=== PATIENT | female | born 1960 | race Caucasian/White ===

== ENCOUNTER → 2018-12-16 | Outpatient (CLI) | payer OTHER ==
[~2018-12-16] MED LIST: ACEBUTCAFT PO; ACET325 PO; ASPI325 PO; ASPI81CH PO; ASPI81EC; ASPI81EC PO; ATOR20 PO; Aspir-Trin325 MG PO; B-12 INJECTIONS; BACL10 PO; Bactrim Ds Tab1 EACH PO; CHOL10002 PO; CLOP75 PO; CYCL10 PO; DOCU100 PO; DULO60 PO; ERGO50000 PO; ESCI10; FENT25TP TOP; FISH1000 PO; GABA300 PO; INS70/30I SUBQ; INSN100I SUBQ; INSR10I SUBQ; INSULANPEN SC; LAVAP17G PO; LEVE500 PO; LEVETIRACETAM; LEVSOD25 PO; LEVSOD50 PO; LEVSOD75; LISHYD1012; LORA1 PO; LORA10ER PO; MAGOXI400 PO; METF850; METO50; MULVITB PO; MULVITB&C PO; NAPR500 PO; NAPR550 PO; NEBI5 PO; NYST100P; OXYACE5T PO; OXYC5 PO; PANT40 PO; PIOG15; PRAV20 PO; PRED20 PO; PROACE100 PO; RANI150 PO; RXLORA1 PO; RXNAPNA550 PO; RXOXYACE PO; SULFAMETHOXAZOLE; SULFAMETHOXAZOLE-TRI; SULTRIEL PO; SULTRISS PO; Synthroid25 MCG PO; TRAM50 PO; TRIMETHOPRIM; VENL75ER; VITAMIN B COMPLEX; [UNRECOGNIZED DRUG - CODE]; [UNRECOGNIZED DRUG - OTHER]; [UNRECOGNIZED DRUG - OTHER]; [UNRECOGNIZED DRUG - OTHER]; [UNRECOGNIZED DRUG - OTHER]
[2018-12-18 15:08] LABS: HPV 16 Negative (Negative); HPV 18 Negative (Negative); HPV OTHER HR TYPES Negative (Negative)
== END | disposition home or self-care (01) ==
LOC: LAB SHORT 17:38 → LAB 17:38
PROVIDERS: Nurse Practitioner Family
DX: Z01.419 Encounter for gynecological examination (general) (routine) without abnormal findings (principal)
CPT/HCPCS: 87624; G0123

== ENCOUNTER → 2019-04-27 | Outpatient (CLI) | payer OTHER | END | disposition home or self-care (01) | LOC: LAB SHORT 18:19 → LAB 18:19 | DX: N39.0 Urinary tract infection, site not specified (principal) | CPT/HCPCS: 87077; 87086; 87186 ==

== ENCOUNTER → 2019-07-05 | Outpatient (CLI) | payer OTHER ==
[~2019-07-05] MED LIST changes: +ATOR40TA; +Ativan1 MG PO; +BACLOFEN5 MG PO
[2019-07-05 18:01] LABS: Source, Urine Peds U Bag
[2019-07-05 18:53] LABS: Bilirubin, Urine Neg (Neg); Blood, Urine Neg (Neg); Glucose Qualitative, Urine Neg (Neg); Ketones, Urine Neg (Neg); Leukocyte Esterase, Urine 1+ (Neg); Nitrite, Urine Neg (Neg); Protein, Urine Neg (Neg); Specific Gravity, Urine 1.005 (1.003-1.022); Urobilinogen, Urine NORM (Normal)
[2019-07-05 19:08] LABS: Appearance, Urine Clear (Clear); Color, Urine Yellow (P-Yellow)
[2019-07-05 19:09] LABS: Bacteria Few /hpf; Red Blood Cells, Urine 0-2 /hpf (0-2); Squamous Epithelial Cells Few /hpf (Few); White Blood Cells, Urine 0-2 /hpf (0-5)
== END | disposition home or self-care (01) ==
LOC: LAB SHORT 17:59 → LAB 17:59
PROVIDERS: Nurse Practitioner Primary Care
DX: N39.0 Urinary tract infection, site not specified (principal)
CPT/HCPCS: 81001; 87086

== ENCOUNTER 2019-08-31 07:26 | Emergency (ER) | payer OTHER ==
[~2019-08-31] VITALS: Ht 170.2 cm; Wt 90.7 kg
[~2019-08-31 07:26] MED LIST changes: -ATOR40TA; -Ativan1 MG PO; -BACLOFEN5 MG PO
[2019-08-31 07:54] LABS: Source, Urine Clean Catch
[2019-08-31 08:02] LABS: Bilirubin, Urine Neg (Neg); Blood, Urine Neg (Neg); Glucose Qualitative, Urine Neg (Neg); Ketones, Urine Neg (Neg); Leukocyte Esterase, Urine 2+ (Neg); Nitrite, Urine Neg (Neg); Protein, Urine Neg (Neg); Urobilinogen, Urine NORM (Normal)
[2019-08-31 08:07] LABS: Appearance, Urine Clear (Clear); Color, Urine Yellow (P-Yellow)
[2019-08-31 08:09] LABS: Bacteria Few /hpf; Red Blood Cells, Urine 0-2 /hpf (0-2); Squamous Epithelial Cells Few /hpf (Few); Transitional Epithelial Cells Few /hpf (0-Rare)
[2019-08-31] MEDS ORDERED: ATOR40TA (08:11)
[2019-08-31 08:21] LABS: BASOPHILS ABSOLUTE AUTO 0.01 K/mm3 (0.00-0.23); BASOPHILS PERCENT AUTO 0 % (0-2); EOSINOPHILS ABSOLUTE AUTO 0.06 K/mm3 (0.00-0.68); EOSINOPHILS PERCENT AUTO 2 % (0-6); Hematocrit 41.9 % (33.0-51.0); Hemoglobin 12.6 g/dL (11.5-16.0); IMMATURE GRAN ABSOLUTE AUTO 0.01 K/mm3 (0.00-0.10); IMMATURE GRAN PERCENT AUTO 0 % (0-1); LYMPHOCYTES ABSOLUTE AUTO 1.06 K/mm3 (0.84-5.20); LYMPHOCYTES PERCENT AUTO 37 % (21-46); MONOCYTES ABSOLUTE AUTO 0.23 K/mm3 (0.16-1.47); MONOCYTES PERCENT AUTO 8 % (4-13); Mean Corpuscular HGB 26.5 pg (26.0-34.0); Mean Corpuscular HGB Conc 30.1 g/dL (31.5-36.5); Mean Corpuscular Volume 88 fL (80-100); Mean Platelet Volume 10.3 fL (9.1-12.4); NEUTROPHILS ABSOLUTE AUTO 1.48 K/mm3 (1.96-9.15); NEUTROPHILS PERCENT AUTO 52 % (41-73); Platelet Count 145 K/mm3 (150-400); RDW Coefficient Variation 14.5 % (11.7-14.2); RDW Standard Deviation 46.1 fL (35.1-46.3); Red Blood Cell Count 4.76 M/mm3 (3.80-5.20); White Blood Cell Count 2.85 K/mm3 (4.00-11.30)
[2019-08-31 08:50] LABS: Alanine Aminotransfer (ALT/SGP 17 U/L (12-78); Albumin, Blood 3.6 g/dL (3.4-5.0); Albumin/Globulin Ratio 1.1 (0.8-1.8); Alk Phos 72 U/L (50-136); Anion Gap 5 mmol/L (6-16); Aspartate Aminotrans (AST/SGOT 19 U/L (12-37); Bilirubin, Total 0.5 mg/dL (0.1-1.0); Blood Urea Nitrogen 14 mg/dL (8-24); Bun/Creatinine Ratio 15.2 (12.0-20.0); CO2, Blood 29 mmol/L (21-32); Calcium, Blood 9.2 mg/dL (8.5-10.1); Chloride, Blood 110 mmol/L (98-108); Creatinine, Blood 0.92 mg/dL (0.40-1.00); Globulin, Blood 3.3 g/dL (2.2-4.0); Glomerular Filtration Rate >60 (60-); Glucose, Blood 94 mg/dL (70-99); Potassium, Blood 4.1 mmol/L (3.5-5.5); Sodium, Blood 144 mmol/L (136-145); Total Protein, Blood 6.9 g/dL (6.4-8.2)
[2019-08-31] MEDS ORDERED: BACLOFEN5 MG PO (10:20)
[2019-08-31] MEDS ORDERED: Ativan1 MG PO (10:50)
== END 2019-08-31 11:35 | disposition home or self-care (01) ==
LOC: ER 07:26
PROVIDERS: Emergency Medicine
DX: M62.838 Other muscle spasm (principal); I10 Essential (primary) hypertension; E11.9 Type 2 diabetes mellitus without complications; E03.9 Hypothyroidism, unspecified; Z86.73 Personal history of transient ischemic attack (TIA), and cerebral infarction without residual deficits; I25.2 Old myocardial infarction; Z87.891 Personal history of nicotine dependence; Z88.0 Allergy status to penicillin; Z88.1 Allergy status to other antibiotic agents; Z88.5 Allergy status to narcotic agent; Z88.8 Allergy status to other drugs, medicaments and biological substances; Z79.899 Other long term (current) drug therapy; Z79.4 Long term (current) use of insulin
CPT/HCPCS: 36415; 74177; 76705; 80053; 81001; 83690; 84484; 85025; 87086; 93005; 93010; 96374-59; 96375; 99284-25; J2405; J3010; Q9967

== ENCOUNTER → 2020-12-26 | Outpatient (CLI) | payer OTHER ==
[~2020-12-26] MED LIST changes: +ATOR40TA; +Ativan1 MG PO; +BACLOFEN5 MG PO
[2020-12-26 20:00] LABS: Appearance, Urine Clear (Clear); Bilirubin, Urine Neg (Neg); Blood, Urine Neg (Neg); Color, Urine Yellow (P-Yellow); Glucose Qualitative, Urine Neg (Neg); Ketones, Urine Neg (Neg); Leukocyte Esterase, Urine Neg (Neg); Nitrite, Urine Neg (Neg); Protein, Urine Neg (Neg); Specific Gravity, Urine 1.005 (1.003-1.022); Urobilinogen, Urine NORM (Normal)
== END ==
LOC: LAB SHORT 12:10 → LAB 12:10
PROVIDERS: Family Medicine
DX: N39.0 Urinary tract infection, site not specified (principal)
CPT/HCPCS: 81003

== ENCOUNTER → 2022-05-07 | Outpatient (CLI) | payer OTHER | END | disposition home or self-care (01) | LOC: LAB SHORT 13:51 | DX: L60.2 Onychogryphosis (principal); B35.1 Tinea unguium | CPT/HCPCS: 87210 ==

== ENCOUNTER 2022-12-24 15:42 | Inpatient (IN) | payer OTHER ==
[~2022-12-24] VITALS: Ht 162.6 cm; Wt 94.5 kg
[2022-12-24] MEDS ORDERED: Woman's Laxative5 MG PO (15:49)
[2022-12-24] MEDS ORDERED: NARCAN4 M1 (15:49)
[2022-12-24] MEDS ORDERED: Keppra750 MG PO (15:52)
[2022-12-24] MEDS ORDERED: LIOT5 PO (15:54)
[2022-12-24] MEDS ORDERED: CLOP75 PO (15:54)
[2022-12-24] MEDS ORDERED: DOCU100 PO (15:55)
[2022-12-24] MEDS ORDERED: Aspir 8181 MG PO (15:56)
[2022-12-24] MEDS ORDERED: FLUC150A PO ×2 (15:57→15:58)
[2022-12-24] MEDS ORDERED: Flonase 0.05% N16 GM (15:57)
[2022-12-24] MEDS ORDERED: VALA500 PO (16:00)
[2022-12-24] MEDS ORDERED: GVOKE HYPO0.5 MG/0.2 SC (16:01)
[2022-12-24] MEDS ORDERED: METH10 PO (16:02)
[2022-12-24] MEDS ORDERED: VITAMIN D5000 UNIT PO (16:02)
[2022-12-24] MEDS ORDERED: NOVOLOG FL100 UNIT/3 SC (16:04)
[2022-12-24] MEDS ORDERED: FISH OIL 1,2001 EAC7 PO (16:05)
[2022-12-24 19:18] LABS: Source, Urine Straight Cath
[2022-12-24 19:29] LABS: Appearance, Urine Clear (Clear); Bilirubin, Urine Neg (Neg); Blood, Urine 1+ (Neg); Color, Urine Yellow (P-Yellow); Glucose Qualitative, Urine 4+ (Neg); Ketones, Urine 1+ (Neg); Leukocyte Esterase, Urine Neg (Neg); Nitrite, Urine Neg (Neg); Protein, Urine Neg (Neg); Specific Gravity, Urine 1.015 (1.003-1.022); Urobilinogen, Urine NORM (Normal); pH, Urine 6.5 (5.0-8.0)
[2022-12-24 19:52] LABS: White Blood Cells, Urine 0-2 /hpf (0-5)
[2022-12-24 19:53] LABS: Bacteria Few /hpf; Squamous Epithelial Cells Rare /hpf (Few)
--- NOTE | 2022-12-24 21:45 | NUR ---
ARRIVAL TO [facility] PT ARRIVED TO [facility] AT APPROXIMATELY 2145. PT WAS SLID OVER FROM ER GURNEY TO HOSPITAL BED BY 4 CLINICAL STAFF MEMBERS. PT VERY LETHARGIC, AROUSING TO VERBAL STIMULI. 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 PT's TWO 24hr CAREGIVERS AT BEDSIDE, THEY STATED THAT THE LETHARGY/CONFUSION IS NOT NORMAL FOR HER. THEY STATED THAT THOUGH SHE IS NON-VERBAL, SHE ANSWERS ALL OF THEIR QUESTIONS APPROPRIATELY BY EITHER SAYING OR NODDING YES OR NO. WHEN PT IS AWAKE SHE APPEARS STARTLED AND CONFUSED, CAREGIVERS ARE ABLE TO COMFORT HER. VSS, PT ARRIVED ON 4L VIA NC, SpO2> 92% WITH NO SIGNS OF RESPIRATORY DISTRESS, LUNGS AR CLEAR/DIM. BP STABLE, SINUS 70's. PULIDO CATHETER IN PLACE, PATENT AND DRAINING TO GRAVITY. CAREGIVERS REMAINED AT BEDSIDE TO GO THROUGH ADMISSION HX, THEN WENT HOME FOR THE NIGHT. PT ON CONTINUOUS CARDIAC AND SpO2 MONITORING, BED POSITIONED SO THAT PT IS VISIBLE FROM NURSES STATION. SUCTION IS SET UP, SEIZURE PADS ON SIDERAILS, AND BED ALARM ON.
[2022-12-24 23:53] LABS: Bun/Creatinine Ratio 8.2 (12.0-20.0); Calcium, Blood 8.7 mg/dL (8.5-10.1); Creatinine, Blood 0.85 mg/dL (0.40-1.00); Potassium, Blood 4.6 mmol/L (3.5-5.5)
[2022-12-25 03:47] LABS: BASOPHILS ABSOLUTE AUTO 0.02 K/mm3 (0.00-0.23); BASOPHILS PERCENT AUTO 0 % (0-2); EOSINOPHILS PERCENT AUTO 0 % (0-6); Hematocrit 41.7 % (33.0-51.0); IMMATURE GRAN ABSOLUTE AUTO 0.03 K/mm3 (0.00-0.10); IMMATURE GRAN PERCENT AUTO 0 % (0-1); LYMPHOCYTES ABSOLUTE AUTO 0.73 K/mm3 (0.84-5.20); LYMPHOCYTES PERCENT AUTO 9 % (21-46); MONOCYTES ABSOLUTE AUTO 0.48 K/mm3 (0.16-1.47); MONOCYTES PERCENT AUTO 6 % (4-13); Mean Corpuscular HGB 30.7 pg (26.0-34.0); Mean Corpuscular HGB Conc 33.6 g/dL (31.5-36.5); Mean Corpuscular Volume 91 fL (80-100); Mean Platelet Volume 10.3 fL (9.1-12.4); NEUTROPHILS ABSOLUTE AUTO 6.61 K/mm3 (1.96-9.15); NEUTROPHILS PERCENT AUTO 84 % (41-73); Platelet Count 142 K/mm3 (150-400); RDW Coefficient Variation 13.1 % (11.7-14.2); RDW Standard Deviation 43.1 fL (35.1-46.3); Red Blood Cell Count 4.56 M/mm3 (3.80-5.20); White Blood Cell Count 7.87 K/mm3 (4.00-11.30)
[2022-12-25 04:10] LABS: Albumin, Blood 3.1 g/dL (3.4-5.0); Albumin/Globulin Ratio 0.9 (0.8-1.8); Bilirubin, Total 0.9 mg/dL (0.1-1.0); Bun/Creatinine Ratio 8.4 (12.0-20.0); Calcium, Blood 8.6 mg/dL (8.5-10.1); Creatinine, Blood 0.84 mg/dL (0.40-1.00); Globulin, Blood 3.4 g/dL (2.2-4.0); Potassium, Blood 3.7 mmol/L (3.5-5.5); Total Protein, Blood 6.5 g/dL (6.4-8.2)
--- NOTE | 2022-12-25 04:43 | NUR ---
SHIFT SUMMARY SEE PREVIOUS NOTE. PT MORE ALERT THAN WHEN SHE ARRIVED. OPENING EYES SPONTANIOUSLY AND TO VERBAL STIMULI. PT NON-VERBAL BUT ANSWERING YES OR NO QUESTIONS APPROPRIATELY BY EITHER NODDING OR SAYING YES OR NO. PT TEARFUL AND RESTLESS ONCE THROUGHOUT THE NIGHT, WHEN ASKED IF SHE WAS IN PAIN SHE SAID YES. CALL TO PHYSICIAN, DISCUSSED HOME PAIN MANAGEMENT REGIMEN, ORDERS PLACE FOR PAIN MANAGMENT. PT HAS BEEN RESTING COMFORTABLY SINCE. OCCATIONALLY PT WILL WAKE UP AND APPEAR AFRAID, PT EASILY REORIENTED AND CONSOLED. VS REMAINED STABLE. BP STABLE, SINUS 70's. TITRATED PT DOWN TO RA FROM 4L VIA NC, SpO2> 92%, NO SIGNS OF RESPIRATORY DISTRESS. PULIDO CATHETER INPLACE, PATENT, DRAINING TO GRAVITY. NO SEIZURES SINCE ARRIVAL TO UNIT. SUCTION SET UP AT BED SIDE, SEIZURE PADS ON SIDE RAILS, AND BED ALARM ON. PT ON CONTINUOUS CARDIAC AND SpO2 MONITORING. WILL REPORT TO ONCOMING RN.
[2022-12-25 08:10] LABS: Magnesium, Blood 1.9 mg/dL (1.6-2.4)
--- NOTE | 2022-12-25 18:56 | NUR ---
PT HAD EEG TODAY, TOLERATED WELL. HOME CAREGIVERS AT BEDSIDE MOST OF THE DAY AND HELPFUL IN CARE. PT ORIENTED TO SELF, EXPRESSIVE APHASIA, R FACIAL DROOP AND R SIDED WEAKNESS AT BASELINE. ABLE TO ANSWER YES AND NO QUESTIONS, MAKE SOME NEEDS KNOWN. VSS, SR ON TELEMETRY. PULIDO CATHETER REMOVED AND PT VOIDING VIA BEDPAN. ENDORSES PAIN LATER THIS EVENING, PO METHADONE RESTARTED PER MD. SEE EMAR FOR DETAILS.
[2022-12-26 04:03] LABS: Hematocrit 38.5 % (33.0-51.0); Hemoglobin 13.2 g/dL (11.5-16.0)
[2022-12-26 04:21] LABS: Albumin, Blood 3.2 g/dL (3.4-5.0); Anion Gap 4 mmol/L (6-16); Blood Urea Nitrogen 5 mg/dL (8-24); Bun/Creatinine Ratio 7.1 (12.0-20.0); CO2, Blood 30 mmol/L (21-32); Calcium, Blood 8.8 mg/dL (8.5-10.1); Chloride, Blood 108 mmol/L (98-108); Glomerular Filtration Rate 97 (60-); Glucose, Blood 143 mg/dL (70-99); Phosphorus, Blood 1.5 mg/dL (2.5-4.9); Potassium, Blood 3.5 mmol/L (3.5-5.5); Sodium, Blood 142 mmol/L (136-145)
--- NOTE | 2022-12-26 05:40 | NUR ---
PT AWAKE MOST OF THIS SHIFT, DID NOT USE COMMUNICATION BOARD BUT DID ANSWER YES/NO QUESTIONS CONSISTENTLY WELL A FEW OTHER WORDS THAT WERE UNDERSTOOD SUCH AT "BATHROOM" AND "WATER" SHE IS ALSO NOTED TO FREQUENTLY ASK FOR RACHELE. SHE WAS NOTED TEARFUL AND ANXIOUS AT TIMES HOWEVER THIS RN WAS UNABLE TO ESTABLISH THE EXACT REASON FOR ANXIETY. SHE DID GET RESTLESS AND ATTEMPT TO GET UP OOB X 2 THIS SHIFT, AT WHICH TIMES SHE ANSWERED YES TO INQUIRIES REGARDING LEGS CRAMPING. ATIVAN 1 MG IV WAS ADMINISTERED AT THESE TIMES WITH GOOD CONTROL OF BOTH ANXIETY/RESTLESSNESS AND LEG CRAMPS. BED ALARM REMAINS ARMED THROUGHOUT NOC WITH IBED FUNCTION ACTIVATED. SHE REMOVED HER IV NEAR THE BEGINNING OF THE NOC AND MULTIPLE ATTEMPTS WERE MADE BY MULTIPLE NURSES TO REESTABLISH IV ACCESS. EXTENDED DWELL WAS PLACED AFTER MIDNOC AND KEPPRA IV WAS IMMEDIATELY ADMINISTERED, DR MAHONEY, RESIDENT HOSPITALIST [employer]IMING TOOL SETTER WAS NOTIFIED OF DELAY IN KEPPRA ADMINISTRATION RELATED TO DIFFICULTY ESTABLISHING IV ACCESS. PHOS NOTED LOW THIS MORNINING AND RESIDENT WAS NOTIFIED, ORDERS RECEIVED FOR K-PHOS IV.
--- NOTE | 2022-12-26 16:21 | NUR ---
1530 - CAREGIVERS AT BEDSIDE CONCERNED ABOUT PT MENTATION AND NOT BACK TO BASELINE WITH HALLUCINATIONS AND "WEIRD BEHAVIOR" - VSS, PT STILL ORIENTED TO SELF AND PERSON. NOTIFIED DR. CHINO AND DR. CHINO TO BEDSIDE TO DISCUSS WITH FAMILY. PER DISCUSSION WITH FAMILY AND MD, CAREGIVER AND POA - RACHELE OK TO GO HOME AND FOLLOW UP WITH CARDIOLOGY. PER DR. CHINO THOUGHT IS THAT PT IS HAVING MENTATION CHANGE DUE TO ATIVAN GIVEN OVERNIGHT AND HOSPITAL DELIRIUM. 1620 - DISCHARGE PAPERWORK COMPLETE, PT HOME WITH HOME HEALTH AND 24 HOUR CAREGIVERS. BED[facility] ALL MEDICATIONS SENT TO [facility] PER POA. TRANSPORT SERVICE AT BEDSIDE AND TRANSPORT
== END 2022-12-26 16:25 | disposition home or self-care (01) | DRG 101 ==
LOC: ER 15:42 → PCU 18:06 → MEDS 18:06 → PCU 21:43
PROVIDERS: Family Medicine Adult Medicine; ADMIT Internal Medicine
PROC: 4A10X4Z Monitoring of Central Nervous Electrical Activity, External Approach (ICD-10-PCS; principal; 2022-12-25)
DX: G40.909 Epilepsy, unspecified, not intractable, without status epilepticus (principal); I69.351 Hemiplegia and hemiparesis following cerebral infarction affecting right dominant side; Z66 Do not resuscitate; Z28.21 Immunization not carried out because of patient refusal; E03.9 Hypothyroidism, unspecified; I10 Essential (primary) hypertension; M54.50 Low back pain, unspecified; E11.9 Type 2 diabetes mellitus without complications; D69.6 Thrombocytopenia, unspecified; G89.4 Chronic pain syndrome; I25.2 Old myocardial infarction; Z87.891 Personal history of nicotine dependence; Z95.1 Presence of aortocoronary bypass graft; Z88.1 Allergy status to other antibiotic agents; Z88.5 Allergy status to narcotic agent; Z88.6 Allergy status to analgesic agent; Z88.8 Allergy status to other drugs, medicaments and biological substances; Z79.4 Long term (current) use of insulin; Z79.02 Long term (current) use of antithrombotics/antiplatelets; Z79.82 Long term (current) use of aspirin; Z79.890 Hormone replacement therapy; Z79.899 Other long term (current) drug therapy
CPT/HCPCS: 36415; 51702; 80048; 80053; 80069; 80177; 81001; 82947; 83735; 84146; 85014; 85018; 85025; 92610; 95819; 96365-59; 96367-59; 96372-59; 97162; 97530; 99285-25; A9270; C1751; J1165; J1650; J1953; J2060; J3010; J7030; J7060

== ENCOUNTER → 2023-02-20 | Outpatient (CLI) | payer OTHER ==
[~2023-02-20] MED LIST changes: +Aspir 8181 MG PO; +FISH OIL 1,2001 EAC7 PO; +FLUC150A PO; +Flonase 0.05% N16 GM; +GVOKE HYPO0.5 MG/0.2 SC; +Keppra750 MG PO; +LIOT5 PO; +METH10 PO; +NARCAN4 M1; +NOVOLOG FL100 UNIT/3 SC; +VALA500 PO; +VITAMIN D5000 UNIT PO; +Woman's Laxative5 MG PO
== END | disposition home or self-care (01) ==
LOC: LAB 16:25 → LAB SHORT 16:25
DX: R32 Unspecified urinary incontinence (principal)
CPT/HCPCS: 87077; 87086; 87186

== ENCOUNTER → 2024-10-07 | Outpatient (CLI) | payer OTHER ==
[2024-10-07 19:09] LABS: Alanine Aminotransfer (ALT/SGP 27 U/L (12-78); Albumin, Blood 3.6 g/dL (3.4-5.0); Alk Phos 61 U/L (50-136); Anion Gap 7 mmol/L (3-11); Aspartate Aminotrans (AST/SGOT 19 U/L (12-37); Bilirubin, Total 0.4 mg/dL (0.1-1.0); Blood Urea Nitrogen 14 mg/dL (8-24); Bun/Creatinine Ratio 16.7 (12.0-20.0); CHOL/HDL RATIO 2.2; CO2, Blood 31 mmol/L (21-32); Calcium, Blood 9.5 mg/dL (8.5-10.1); Chloride, Blood 107 mmol/L (98-108); Cholesterol 161 mg/dL (50-200); Creatinine, Blood 0.84 mg/dL (0.40-1.00); Globulin, Blood 3.6 g/dL (2.2-4.0); Glomerular Filtration Rate 77 (60-); Glucose, Blood 150 mg/dL (70-99); HDL Cholesterol 72 mg/dL (>39); LDL/HDL RATIO 0.8; Low Density Lipoprotein Chol 56 mg/dL (0-110); Potassium, Blood 3.9 mmol/L (3.5-5.5); Sodium, Blood 141 mmol/L (136-145); Total Protein, Blood 7.2 g/dL (6.4-8.2); Triglycerides 164 mg/dL (30-160); Very Low Density Lipoprot Chol 32 mg/dL (6-32)
[2024-10-11 10:31] LABS: KEPPRA (LEVETIRACETAM) 77 ug/mL (10-40)
== END ==
LOC: LAB 17:27 → LAB SHORT 17:27
PROVIDERS: Family Medicine
DX: E03.9 Hypothyroidism, unspecified (principal); E11.9 Type 2 diabetes mellitus without complications; E78.5 Hyperlipidemia, unspecified; G40.909 Epilepsy, unspecified, not intractable, without status epilepticus
CPT/HCPCS: 80053; 80061; 80177; 84443

== ENCOUNTER → 2025-11-11 | Outpatient (CLI) | payer OTHER ==
[2025-11-11 21:14] LABS: Creatinine, Urine Random 31.40 mg/dL (27.00-270.00)
[2025-11-11 21:17] LABS: Microalb/Creat Ratio UR, Rand Unable to Calculate mg/g (0.000-30.000); Microalbumin, Random Urine <5.000 mg/L (0.000-20.000)
== END ==
LOC: LAB 12:35 → LAB SHORT 12:35
PROVIDERS: Family Medicine
DX: E11.9 Type 2 diabetes mellitus without complications (principal)
CPT/HCPCS: 82043; 82570